=== PATIENT | female | born 2000 | race Caucasian/White ===

== ENCOUNTER 2021-02-09 19:04 | Emergency (ER) | payer MEDICAID ==
[~2021-02-09] VITALS: Ht 167.6 cm; Wt 87.7 kg
[2021-02-09 21:50] VITALS: BP 112/71; PULSE 100; TEMP 98.6
== END 2021-02-09 21:50 | disposition home or self-care (01) ==
LOC: COL.ER 19:04
DX: U07.1 COVID-19 (principal); Z88.0 Allergy status to penicillin
CPT/HCPCS: J7030

== ENCOUNTER → 2021-03-18 | Outpatient (CLI) | payer MEDICAID ==
[~2021-03-18] VITALS: Ht 167.6 cm; Wt 90.0 kg
[~2021-03-18] MED LIST: SLOW FE142 MG PO
--- NOTE | 2021-03-18 20:00 | NUR ---
1999-Patient arrives onto unit with c/o LOF. Patient is 36.1 weeks gestation. . Patient is oriented to LDR4. Instructed to change into gown. EFM/TOCO explained and applied. Patient denies decreased movement or VB. Reports two liv khan ctx within the hour. Patient states at around 1900 this evening, she felt some fluid leaking. SVE 0/50/-3. Amniotest was negative for SROM. Assessments completed at this time. Plan of care discussed. Patient verbalizes understanding.
[2021-03-18 20:26] VITALS: BP 123/81; PULSE 100; TEMP 98.9
== END ==
LOC: LDRO 19:44
DX: O42.913 Preterm premature rupture of membranes, unspecified as to length of time between rupture and onset of labor, third trimester (principal); Z3A.36 36 weeks gestation of pregnancy

== ENCOUNTER 2021-04-07 16:39 | Inpatient (IN) | payer MEDICAID ==
[2021-04-07] VITALS (16 sets, daily range): BP systolic 108–144; BP diastolic 56–80; PULSE 72–110; TEMP 97.7–98.8
[~2021-04-07] VITALS: Ht 170.2 cm; Wt 91.8 kg
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
[2021-04-07 17:43] LABS: BASO % 0.2 % (0.0-2.0); EOS # 0.1 K/mm3 (0.0-0.7); EOS % 0.5 % (0.0-4.0); GRAN # 9.3 K/mm3 (1.4-6.5); GRAN % 75.9 % (42.2-75.2); HEMOGLOBIN 10.3 g/dl (12.0-15.0); LYMPH # 2.1 K/mm3 (1.2-3.4); LYMPH % 17.2 % (20.0-51.0); MEAN CELL VOLUME 99 fl (80.0-95.0); MEAN CORPUSCULAR HEMOGLOBIN 34 pg (26-32); MEAN CORPUSCULAR HGB CONC 35 g/dl (33.0-37.0); MONO # 0.7 K/mm3 (0.1-0.6); MONO % 5.4 % (1.7-9.3); PLATELET COUNT 128 K/mm3 (130-400); REDCELL DISTRIBUTION WIDTH-CV 13.2 % (11.5-14.5)
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
[2021-04-07 17:46] LABS: HEMATOCRIT 29.8 % (35.0-45.0)
--- NOTE | 2021-04-07 18:40 | NUR ---
1839- PITOCIN STARTED AT 2 MLU/HR. PT SITTING UP IN BED TALKING WITH HER FRIEND, ELSY. AFEBRILE. VSS. PITOCIN D/W PT AND PAIN MANAGEMENT OPTIONS WITH PT AND DEMONSTRATES UNDERSTANDING.
--- NOTE | 2021-04-07 21:00 | NUR ---
PT UP TO VOID. PT REPORTS FEELING MORE PAIN WITH CTX BUT TOLERABLE. SUPPORT PERSON, ELSY STILL REMAINS AT BS.
--- NOTE | 2021-04-07 22:00 | NUR ---
2154- PT C/O MORE INTENSE PAIN W/ CTX. SVE PERFORMED BY RN AND UNCHANGED FROM LAST CERVICAL CHECK 2199- DR. BROWN ON THE UNIT. 2201- DR. BROWN AT BS. BABY HEAD DOWN VIA SONO. USSAN/STEPHANIE: GIVE STADOL 1 MG IV X1 DOSE NOW.
[2021-04-08] VITALS (51 sets, daily range): BP systolic 84–133; BP diastolic 48–858; PULSE 59–105; TEMP 97.6–99.3
--- NOTE | 2021-04-08 02:15 | NUR ---
0155- RAYMOND, [employer]EN[employer] TEACHER AT BS FOR EPIDURAL PLACEMENT 0205- BLOCK TIME, 123/85 PULSE 100, SPO2 100% 0207- TEST DOSE, 1254/74, PULSE 96, SPO2 98% 0209- 114/69, PULSE 83 0210- RT TILT 0211- 116/75, PULSE 96 0213- 126/75, PULSE 99 0215- EPIDURAL PUMP SET UP BY ANESTHESIA, 119/70, PULSE 92 0217- 120/61, PULSE 81 0219- 120/58, PULSE 88
--- NOTE | 2021-04-08 03:15 | NUR ---
DIFFICULTY TRACING CTX W/ TOCO WHILE PT LYING ON HER SIDE.
--- NOTE | 2021-04-08 03:30 | NUR ---
DIFFICULTY TRACING CTX W/ TOCO R/T MATERNAL POSITION.
--- NOTE | 2021-04-08 03:45 | NUR ---
DIFFICULTY TRACING CTX W/ TOCO WHILE PT LYING ON HER SIDE. DIFFICULTY TRACING FHTS WELL. EFM READJUSTED.
--- NOTE | 2021-04-08 08:17 | NUR ---
8930 PATIENT REPOSITIONED TO LEFT SIDE WITH PEANUT BALL. FHT HARD TO TRACE. SCALP ELECTRODE PLACED AT THIS TIME. TOLERATES WELL
--- NOTE | 2021-04-08 09:47 | NUR ---
0930 ROLES AT BEDSIDE NO CHANGES NOTED WITH SVE. TALK WITH PATIENT ABOUT C SECTION. PITOCIN OFF AND PATIENT READY FOR OR
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
--- NOTE | 2021-04-08 14:16 | NUR ---
1415 REPORT GIVEN TO A STERLING RN TO ASSUME CARE OF MOM AND BABY AT THIS TIME
[2021-04-09 04:00] VITALS: BP 101/50; PULSE 69; TEMP 98
[2021-04-09 07:20] VITALS: BP 98/68; PULSE 70; TEMP 97.9
--- NOTE | 2021-04-09 09:26 | NUR ---
PT[facility]. ALL DC PAPERWORK FOR PT REVIEWED AND UNDERSTOOD. AT BEDSIDE, EDUCATES PT TO COME TO [facility] IN 1 WEEK FOR A BP CHECK AND TO ASK STAFF AT [facility] TO SPOT CHECK HER BP IF SHE FEELS SYMPTOMATIC IN ANY WAY. PT ACKNOWLEDGES AND UNDERSTANDS EDUCATION. PT IN STABLE CONDITION. TEARFUL BUT ACCEPTING OF CURRENT PLAN OF CARE. OFFERS STRONG SUPPORT SYSTEM. DENIES FURTHER QUESTIONS OR CONCERNS REGARDING DC PLAN.
--- NOTE | 2021-04-09 11:11 | NUR ---
Initial visit; Patient thanked Transit Coach Operator for offering congratulations and God's blessings for the of her son. Transit Coach Operator thanked patient for choosing [facility].
--- NOTE | 2021-04-09 16:00 | NUR ---
DRESSING REMOVED AND PT IS UP SHOWERING. INCISION IS WELL APPROXIMATED. NO REDNESS, DRAINAGE OR ODOR NOTED TO SITE.
[2021-04-09 16:32] VITALS: BP 113/69; PULSE 91; TEMP 97.9
[2021-04-09 19:45] VITALS: BP 97/63; PULSE 98; TEMP 97.4
[2021-04-10 07:26] VITALS: BP 104/64; PULSE 76; TEMP 98
[2021-04-10] MEDS ORDERED: PERCOCET 325 MG1 TA2 PO (09:38)
[2021-04-10] MEDS ORDERED: IBU800 M1 PO (09:38)
--- NOTE | 2021-04-10 11:18 | NUR ---
ALL DC PAPERWORK REVIEWED AND UNDERSTOOD BY PT. ALL FOLLOW UP APPOINTMENTS REVIEWED. PT IN STABLE CONDITION. DENIES PAIN. LOCHIA SCANT WITH NO CLOTS NOTED. THIS NURSE VISUALIZES PT PLACING INFANT SAFELY INTO CARSEAT, STRAPS SECURED APPROPRIATELY. PT AMBULATORY FROM UNIT WITH THIS NURSE ALONGSIDE. PLACED SAFELY INTO CARSEAT BASE IN PT'S PRIVATE VEHICLE. PT'S SISTER OFFERING SUPPORT AT THIS TIME AND PROVIDING A RIDE HOME. PT REPORTS SHE WILL BE LIVING WITH HER SISTER FOR "AT LEAST A MONTH OR MORE" AND DENIES FURTHER QUESTIONS OR CONCERNS.
== END 2021-04-10 11:15 | disposition home or self-care (01) | DRG 788 ==
LOC: LDRO 16:39 → LDR 17:00 → OB 04-08 11:00
PROVIDERS: ADMIT Obstetrics & Gynecology
PROC: 10D00Z1 Extraction of Products of Conception, Low, Open Approach (ICD-10-PCS; principal; 2021-04-07)
DX: O99.344 Other mental disorders complicating childbirth (principal); F41.9 Anxiety disorder, unspecified; F32.A Depression, unspecified; O62.0 Primary inadequate contractions; O99.02 Anemia complicating childbirth; D64.9 Anemia, unspecified; Z88.0 Allergy status to penicillin; Z3A.37 37 weeks gestation of pregnancy; Z3A.39 39 weeks gestation of pregnancy; Z37.0 Single live birth; Z86.16 Personal history of COVID-19
CPT/HCPCS: J0595; J0690; J1100; J1885; J2405; J2590; J7120